=== PATIENT | female | born 1980 | race African-American/Black ===

== ENCOUNTER 2016-09-26 15:44 | Emergency (ER) | payer OTHER ==
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
== END 2016-09-26 16:21 | disposition home or self-care (01) ==
LOC: CFTX 15:44
DX: S61.250A Open bite of right index finger without damage to nail, initial encounter (principal); F17.210 Nicotine dependence, cigarettes, uncomplicated; W50.3XXA Accidental bite by another person, initial encounter; Y92.89 Other specified places as the place of occurrence of the external cause
CPT/HCPCS: 29130; 73140; 84703; 99283